=== PATIENT | male | born 2000 | race Caucasian/White ===

== ENCOUNTER → 2022-01-26 | Outpatient (CLI) | payer OTHER ==
[2022-01-26 11:59] LABS: BASO # 0.04 K/mm3 (0.02-0.10); EOS % 1.9 % (0.0-4.0); HEMATOCRIT 46.3 % (36.0-47.0); HEMOGLOBIN 15.6 g/dL (12.5-16.1); LYMPH# 1.55 K/mm3 (1.50-4.00); MEAN CELL VOLUME 84 fl (78-95); MEAN CORPUSCULAR HEMOGLOBIN 28 pg (26-32); MEAN CORPUSCULAR HGB CONC 34 g/dL (33-37); MEAN PLATELET VOLUME 11.6 fl (7.4-10.4); MONO # 0.35 K/mm3 (0.20-0.80); NEU # 3.14 K/mm3 (1.40-6.50); PLATELET COUNT 168 K/mm3 (130-400); RED BLOOD COUNT 5.52 M/mm3 (4.20-5.60); RED CELL DISTRIBUTION WIDTH 12.3 % (11.5-14.5); WHITE BLOOD COUNT 5.2 K/mm3 (4.8-10.8)
[2022-01-26 12:09] LABS: ALBUMIN 4.7 g/dL (3.5-5.0); SODIUM 141 mmol/L (136-145)
[2022-01-26 12:10] LABS: CALCIUM 9.8 mg/dL (8.3-10.5)
[2022-01-26 12:11] LABS: GLUCOSE 79 mg/dL (75-110); TOTAL PROTEIN 7.6 g/dL (6.4-8.3)
[2022-01-26 12:12] LABS: CARBON DIOXIDE 24 mmol/L (22-29)
[2022-01-26 12:13] LABS: TOTAL BILIRUBIN 0.9 mg/dL (0.2-1.2)
[2022-01-26 12:17] LABS: AST-SGOT 20 U/L (5-34)
[2022-01-26 12:18] LABS: ALT/SGPT 25 U/L (0-55)
[2022-01-26 12:36] LABS: TROPONIN-I < 0.030 ng/mL (<0.030)
[2022-01-26 12:37] LABS: D-DIMER 0.05 mg/L FEU (0.15-0.50)
== END ==
LOC: LAB 11:36
PROVIDERS: Nurse Practitioner Primary Care
DX: R07.9 Chest pain, unspecified (principal)